=== PATIENT | female | born 1940 | race Caucasian/White ===

== ENCOUNTER 2016-12-10 06:00 | Inpatient (IN) | payer MEDICARE ==
[2016-11-28 11:12] LABS: BASOPHILS 0.5 %; BASOPHILS ABSOLUTE 0.03 10/3/uL (0.0-0.16); EOSINOPHILS ABSOLUTE 0.31 10/3/uL (0.0-0.53); IMMATURE GRANULOCYTES 0.2 %; IMMATURE GRANULOCYTES ABSOLUTE 0.01 10/3/uL (0.0-0.11); LYMPHOCYTES 29.6 %; LYMPHOCYTES ABSOLUTE 1.85 10/3/uL (0.67-4.30); MEAN CORPUS HGB CONC 33.4 g/dL (32.0-36.0); MEAN CORPUSCULAR HEMOGLOB 30.9 pg (26.0-34.0); MEAN CORPUSCULAR VOLUME 92.4 fL (80-100); MEAN PLATELET VOLUME 10.2 fL (9.2-13.0); MONOCYTES 9.4 %; MONOCYTES ABSOLUTE 0.59 10/3/uL (0.21-1.20); NEUTROPHILS 55.3 %; NEUTROPHILS ABSOLUTE 3.46 10/3/uL (2.02-8.40); PLATELET COUNT 325 10/3/uL (150-400); RBC DISTRIBUTION WIDTH 14.1 % (12.0-16.0); RED CELL COUNT 4.21 10/6/uL (4.0-5.6); WHITE BLOOD CELLS 6.3 10/3/uL (4.5-10.5)
[2016-11-28 11:13] LABS: HEMATOCRIT 38.9 % (36.0-48.0); MANUAL DIFF NO %
[2016-11-28 11:23] LABS: INTERNATIONAL NORMAL RATI 0.9 UNITS (-); PARTIAL THROMBO TIME 26.9 SEC (22.5-37.2)
[2016-11-28 11:24] LABS: PROTIME (NOT ORD) 12.5 SEC (12.0-14.5)
[2016-11-28 11:31] LABS: A/G RATIO 1.2 (0.7-1.9); ALBUMIN 3.8 G/DL (3.5-5.0); ALKALINE PHOSPHATASE 86 U/L (45-117); BUN (BLOOD UREA NITROGEN) 15 MG/DL (6-23); CALCIUM, SERUM 10.1 MG/DL (8.5-10.4); CHLORIDE, SERUM 102 MMOL/L (96-112); CO2 (CARBON DIOXIDE) 27 MMOL/L (24-34); CREATININE 0.75 MG/DL (0.55-1.02); GFR AFRICAN AMERICAN 89 ML/MIN (>=60); GFR NON AFRICAN AMERICAN 77 ML/MIN (>=60); GLOBULIN 3.1 G/DL (2.5-4.1); POTASSIUM, SERUM 4.1 MMOL/L (3.5-5.3); SGOT(AST) 18 U/L (5-40); SGPT(ALT) 25 U/L (5-65); SODIUM, SERUM 139 MMOL/L (135-148); TOTAL BILIRUBIN 0.5 MG/DL (0-1.2); TOTAL PROTEIN 6.9 G/DL (6.0-8.5)
[2016-11-28 11:32] LABS: GLUCOSE, SERUM 94 MG/DL (60-99)
[2016-11-28 11:53] LABS: ASCORBIC ACID (UR NOT ORDER) NEG (NEG); BILIRUBIN, URINE NEGATIVE (NEG); KETONE, URINE NEGATIVE (NEG); LEUKOCYTE ESTERASE(NOT OR NEG (NEG); WBC (NOT ORDERED) (RFLEX) < 1 (0-5)
--- NOTE | ~2016-12-10 | OP ---
Record Of Operation [facility] [address] [place]. 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 PROCEDURE: Left total knee arthroplasty. SURGEON: Abdulaziz Hernández M.D. RADIATION / CHEMISTRY TECHNICIAN: None. ANESTHESIA: General endotracheal. ESTIMATED BLOOD LOSS: 100 mL. COMPLICATIONS: None. DRAINS: ConstaVac x1. TOURNIQUET TIME: Approximately 70 minutes. IMPLANTS: Eulalio and Eulalio Attune size 6 narrow posterior stabilized left femoral component, size 6 modular tibial tray with a 5 mm thick posterior stabilized tibial polyethylene insert, the patella was a 38 mm patella. All components were cemented in place with [employer] Simplex bead set bone cement. INDICATIONS FOR SURGERY: Ms Brooke is a 75-year-old female with severe varus osteoarthritis of her left knee. She has had unremitting pain, which has been refractory to medical management. She presents requesting the above-mentioned procedure. Risks of the procedure as detailed in the history and physical, and operative consent were discussed prior to proceeding. She fully understood and has requested to proceed. DESCRIPTION OF PROCEDURE: The patient was brought to the operating room and after induction of anesthesia, was positioned in the supine position. All appropriate pressure points were padded. The operative knee was then prepped and draped in the usual sterile fashion. Time out was performed confirming the appropriate surgical side and site. The leg was exsanguinated with an Zeus wrap and the tourniquet inflated to 350 mmHg pressure. A medial parapatellar approach to the knee was performed. The skin and cutaneous tissues were incised sharply in the midline with a #10 blade. Electrocautery was used as needed to maintain hemostasis. The retinaculum was divided and the extensor mechanism exposed. A median parapatellar arthrotomy was carried out. The medial tibia was exposed subperiosteally and the patellofemoral ligaments divided. The patella was then subluxated laterally and the knee carefully flexed. The knee was Record Of Operation [facility] [id number] [facility] [place]. [address] NAME: AMAURY BROOKE : 38 STATUS : ADM IN PAT#: [id number] AGE: 75 ADM/REG DATE : 12/10/16 MR#: [id number] REPORT SERV DATE: 12/10/16 DICTATED BY: ABDULAZIZ HERNÁNDEZ DATE: 12/10/16 REPORT STATUS : Draft TRANSCRIBED BY: SUYAPA DATE: 12/10/16 d brided of all osteophytes, meniscal remnants in the anterior and posterior cruciate ligaments. Attention was then turned to the distal femur. The intramedullary guide was set at 5 degrees of valgus and secured to the distal femur. The distal femoral resection was then carried out. The femur was then sized to the appropriate block as determined intraoperatively and from templating. The AP cutting block was secured in such a way as to create matched distal and posterior femoral resections in the appropriate rotation. The anterior and posterior femoral cuts were made, chamfer cuts were completed and the box was created for the posterior stabilized femoral component. Attention was then turned to the tibia. The extramedullary alignment guide was set a neutral varus/valgus to match the patient's lower sioux posterior tibial slope. The tibia was resected, removing 2 to 3 mm, from the most affected side. The tibial fragment was then removed. Attention was then turned to the posterior aspect of the knee and any remaining posterior femoral osteophytes or meniscal remnants were d brided. The patella was then everted and a uniform resection created taking the thickness of the planned patellar component. The cut was checked with a caliper to be sure of the appropriate resection level. The patella was then finally sized and three holes drilled for an oval domed three peg patella. At this point, the varus/valgus alignment of the knee was accessed. The appropriate releases were performed to balance the knee. A trial reduction was performed. The knee came to a full extension. There was 2 to 3 mm of opening to both varus and valgus stress at 30 and 90 degrees of flexion and normal patellar tracking. At this point, all trial components were removed and the final tibial preparation performed. The bony surfaces were copiously irrigated with normal saline and dried and the final components cemented in place. Once the cement had fully cured, the knee was carefully inspected and all extruded cement fragments were removed. A trial reduction was once again performed. Range of motion and stability of the knee were unchanged. The true tibial insert was then impacted in the clean tibial tray. A drain was placed deep through the arthrotomy and the knee was once again irrigated with pulsatile lavage normal saline. The arthrotomy was repaired using interrupted 1-0 Vicryl suture in a [id number] fashion. The subcutaneous tissues were approximated with interrupted 2-0 Vicryl suture, the skin stapled. A sterile dressing was applied. The tourniquet was deflated and the patient was taken to the Recovery Room in stable condition. POSTOP PLAN: The patient is to be weightbearing as tolerated with physical therapy to be started per total knee arthroplasty protocol. The patient will be on Coumadin and mechanical deep venous thrombosis prophylaxis. BO/SUYAPA Abdulaziz Record Of Operation [address] [address] NAME: AMAURY BROOKE : 36 STATUS : ADM IN [facility]#: [id number] AGE: 75 ADM/REG DATE : 12/10/16 MR#: [id number] REPORT SERV DATE: 12/10/16 DICTATED BY: ABDULAZIZ HERNÁNDEZ DATE: 12/10/16 REPORT STATUS : Draft TRANSCRIBED BY: MODL DATE: 12/10/16 Lisseth Hernández / [id number] CC: Abdulaziz Hernández M.D.
[~2016-12-10 06:00] MED LIST: ACET500CAP PO; ALEVE220 MG PO; ASAB PO; CALTRA600D PO; CELEBREX2 PO; CLARIT10 PO; CO Q-10100 MG PO; CO Q-10200 MG PO; COUMADIN3 MG; CRESTOR10 PO; DIL2TAB PO; ERY-TAB250 MG PO; ESTRACE0.5 MG PO; FISH OIL1200 MG PO; FISH-EPA1000 MG PO; GLUCCHONDR PO; GYNODIOL0.5 MG PO; HALF81 PO; MICARDIS40 PO; PRAVAC PO; PRILO PO; SINGULAIR1 PO; ULTRAM50 PO; VITAMIN B-121000 MC1 SL; VITAMIN D31000 UNIT PO
[2016-12-11 04:15] LABS: HEMOGLOBIN 10.7 g/dL (12.0-16.0)
[2016-12-11 04:17] LABS: HEMATOCRIT 31.2 % (36.0-48.0)
[2016-12-11 04:21] LABS: INTERNATIONAL NORMAL RATI 1.1 UNITS (-); PROTIME (NOT ORD) 13.8 SEC (12.0-14.5)
[2016-12-11 04:29] LABS: CHLORIDE, SERUM 99 MMOL/L (96-112); CO2 (CARBON DIOXIDE) 24 MMOL/L (24-34); GFR AFRICAN AMERICAN 82 ML/MIN (>=60); GFR NON AFRICAN AMERICAN 71 ML/MIN (>=60); GLUCOSE, SERUM 109 MG/DL (60-99); POTASSIUM, SERUM 4.1 MMOL/L (3.5-5.3)
[2016-12-11 04:30] LABS: BUN (BLOOD UREA NITROGEN) 11 MG/DL (6-23); CALCIUM, SERUM 8.7 MG/DL (8.5-10.4); SODIUM, SERUM 131 MMOL/L (135-148)
[2016-12-12 05:51] LABS: HEMATOCRIT 30.3 % (36.0-48.0); HEMOGLOBIN 10.6 g/dL (12.0-16.0)
[2016-12-12 05:57] LABS: INTERNATIONAL NORMAL RATI 1.7 UNITS (-)
[2016-12-12 05:58] LABS: PROTIME (NOT ORD) 20.2 SEC (12.0-14.5)
[2016-12-12] MEDS ORDERED: NORCO1 TA1 PO (09:00)
[2016-12-12] MEDS ORDERED: C25 (09:00)
[2016-12-12] MEDS ORDERED: ULTRAM50 PO (09:00)
== END 2016-12-12 11:08 | disposition home or self-care (01) | DRG 470 ==
LOC: SDC/OF 06:00 → PACU 10:34 → 3JRC 11:19
PROVIDERS: Specialist
PROC: 3E0T3CZ (ICD-10-PCS; 2016-12-10)
PROC: 0SRD0J9 Replacement of Left Knee Joint with Synthetic Substitute, Cemented, Open Approach (ICD-10-PCS; principal; 2016-12-10 07:45)
DX: M17.12 Unilateral primary osteoarthritis, left knee (principal); I10 Essential (primary) hypertension; F41.9 Anxiety disorder, unspecified; K21.9 Gastro-esophageal reflux disease without esophagitis; E78.5 Hyperlipidemia, unspecified
CPT/HCPCS: 36415; 71020; 80048; 80053; 81001; 85014; 85018; 85025; 85610; 85730; 86850; 86900; 86901; 87070; 87641; 88305; 88311; 93005; 97116-GP; 97150-GP; 97161-GP; 97165-GO; A9270-GY; C1776; J0690; J1885; J2250; J2274; J2405; J2710; J2795; J3010